=== PATIENT | female | born 1970 | race Caucasian/White ===

== ENCOUNTER → 2020-08-15 07:08 | Outpatient (CLI) | payer OTHER, SELFPAY ==
[2020-08-16 00:15] LABS: SARS-CoV-2 RNA PCR Negative
== END ==
PROVIDERS: Visit Provider Internal Medicine
DX: Z20.822 Contact with and (suspected) exposure to COVID-19 (principal)
CPT/HCPCS: C9803; U0003; U0005

== ENCOUNTER → 2021-05-07 09:25 | Outpatient (CLI) | payer OTHER, SELFPAY ==
--- NOTE | ~2021-05-07 | MR_ITS ---
EXAMINATION: MR shoulder RT wo con DATE: 05/07/2021 10:01 INDICATION: Adhesive capsulitis of right shoulder. Right shoulder pain. TECHNIQUE: Magnetic resonance imaging (MRI) of the right shoulder was performed without intravenous c ontrast. Sequences included axial PD-weighted FS FSE, coronal oblique PD-weighted FS FSE and T2-weigh xu FS FSE, and sagittal oblique T2-weighted FS FSE and T1-weighted FSE. COMPARISON: None. FINDINGS: Coracoacromial arch: The acromion undersurface is flat in morphology (type I). There is mild acromioclavicular joint osteo arthritis including inferiorly directed osteophytes. There is mild subacromial/subdeltoid bursitis. Rotator cuff: There is mild supraspinatus and infraspinatus tendinopathy. Teres minor tendon is normal. There is mi ld subscapularis tendinopathy. No tear. There is no asymmetric fatty atrophy of the rotator cuff musc le bellies. Biceps tendon and glenoid labrum: Biceps tendon is in bicipital groove. There is mild intra-articular biceps tendinopathy. There is deg eneration of glenoid labrum without well-defined tear. Fluid: There is a small glenohumeral joint effusion. Bones/cartilage: There is shallow partial-thickness cartilage loss of humeral head and glenoid. IMPRESSION: 1. Mild rotator cuff tendinopathy. No tear. 2. Mild glenohumeral joint chondrosis. 3. Mild acromioclavicular joint osteoarthritis. 4. Mild intra-articular biceps tendinopathy. 5. Mild subacromial/subdeltoid bursitis. 6. Small glenohumeral joint effusion. Reviewed, dictated and finalized at location A. HALMIC AIDE
== END ==
PROVIDERS: Visit Provider Orthopaedic Surgery
DX: M75.01 Adhesive capsulitis of right shoulder (principal); M19.011 Primary osteoarthritis, right shoulder; M75.51 Bursitis of right shoulder; M25.411 Effusion, right shoulder
CPT/HCPCS: 73221

== ENCOUNTER 2023-11-13 11:11 | Outpatient (CLI) | payer OTHER, SELFPAY ==
--- NOTE | ~2023-11-13 | XR_ITS ---
XR ankle RT min 3V Ordering provider: Michaelle Duran, TUCK POINTER-C History: . Pain in right ankle and joints of right foot . Comparison: None. FINDINGS: BONES: Fracture of the distal fibula. Infection is less likely. No displacement seen. Follow-up advis ed. Chip of bone is seen above the anterior talus suggestive of a Fracture of the talus. Bony fragmen ts is also seen above the navicular bone. JOINT SPACES: Normal. SOFT TISSUES: Soft tissue swelling over the lateral malleolus. IMPRESSION: Fracture of the distal fibula. Chip fracture above the distal talus. Bony fragment about the navicular bone suggestive of a fracture. Reviewed, dictated and finalized at location A.
== END 2023-11-13 11:12 ==
PROVIDERS: PCP Nurse Practitioner Adult Health; Visit Provider Nurse Practitioner Adult Health
DX: S82.831A Other fracture of upper and lower end of right fibula, initial encounter for closed fracture (principal); X58.XXXA Exposure to other specified factors, initial encounter
CPT/HCPCS: 73610